=== PATIENT | male | born 1970 | race Caucasian/White ===

== ENCOUNTER 2018-06-18 08:53 | Emergency (ER) | payer SELFPAY, OTHER | END 2018-06-18 11:50 | disposition home or self-care (01) | LOC: ER 08:53 ==

== ENCOUNTER 2020-06-05 12:14 | Inpatient (IN) | payer SELFPAY ==
[~2020-06-05] VITALS: Ht 175 cm; Wt 91.0 kg
[~2020-06-05 12:14] MED LIST: ASP81CT PO; ATEN-147 PO; FENO160T PO; HCTZ12.5T PO; MULT-974 PO; SIMV40TA4 PO; SULF-222 PO
[2020-06-05] MEDS ORDERED: morphine INJ 10 MG/ML 1ML (SYR OR VIAL) IV STA (12:21)
[2020-06-05] MEDS ORDERED: morphine INJ 10 MG/ML 1ML (SYR OR VIAL) ONE (12:21)
--- NOTE | 2020-06-05 12:24 | ED Chest Pain ---
General Stated Complaint: CHEST PAIN, ARM NUMBNESS Source: patient Exam Limitations: no limitations History of Present Illness Date Seen by Provider: Jun 05, 2020 Time Seen by Provider: 12:18 Initial Comments This is a 49 yo male who presents to the ER with c/o intermittent mid chest pain 1 week, but worse today. Apx half hour ago, he had sharp constant chest pain that radiated into his left arm. Rates 9/10 at this time. Denies fevers, cough, shortness of breath, nausea, vomiting, abdominal pain. Denies any alleviating or aggravating factors. Denies history of alcohol, smoking or drug use. Cardiac history includes HTN and HLD, states he only takes hydrochlorothiazide daily. Last meal approximately 2 hours ago. Allergies and Home Medications Allergies Coded Allergies: No Known Drug Allergies (Unverified , 04/15/13) Home Medications Aspirin 81 Mg Chew, 81 MG PO DAILY, (Reported) Atenolol 25 Mg Tab, 25 MG PO DAILY, (Reported) Hydrochlorothiazide 12.5 Mg Cap, 25 MG PO DAILY, (Reported) Multivitamin 1 Each Tablet, 1 EACH PO DAILY, (Reported) Simvastatin 40 Mg Tablet, 40 MG PO HS, (Reported) Patient Home Medication List Home Medication List Reviewed: Yes Review of Systems Review of Systems Constitutional: see HPI EENTM: See HPI Respiratory: See HPI Cardiovascular: See HPI Gastrointestinal: See HPI Genitourinary: See HPI Musculoskeletal: see HPI Skin: see HPI Psychiatric/Neurological: See HPI Endocrine: See HPI Hematologic/Lymphatic: See HPI Past Vqmfqjo-Mrqwqc-Njpczq Hx Patient Social History 2nd Hand Smoke Exposure: No Recent Hopitalizations: No Immunizations Up To Date Tetanus Booster (TDap): More than 5yrs Date of Influenza Vaccine: Mar 31, 2013 Past Medical History Surgeries: Yes Respiratory: No Cardiac: Yes High Cholesterol, Hypertension Neurological: No Reproductive Disorders: No Sexually Transmitted Disease: No Gastrointestinal: No Musculoskeletal: No Endocrine: No Cancer: No Psychosocial: No Integumentary: No Blood Disorders: No Adverse Reaction/Blood Tranf: No Physical Exam Vital Signs Vital Signs - First Documented Capillary Refill : Height, Weight, BMI Height: 5'9.00" Weight: 210lbs. oz. 95.039573hb; 27.02 BMI Method:Stated General Appearance: No Apparent Distress, WD/WN HEENT: PERRL/EOMI, Moist Mucous Membranes Neck: Full Range of Motion, Normal Inspection Respiratory: Lungs Clear, Normal Breath Sounds Cardiovascular: Regular Rate, Rhythm, Normal Peripheral Pulses Neurologic/Psychiatric: Alert, Oriented x3, No Motor/Sensory Deficits Skin: Normal Color, Warm/Dry Progress/Results/Core Measures Results/Orders Lab Results Laboratory Tests Test 06/05/20 12:20 Range/Units White Blood Count 12.9 H 4.3-11.0 10^3/uL Red Blood Count 5.68 H 4.30-5.52 10^6/uL Hemoglobin 17.0 13.3-17.7 g/dL Hematocrit 51 40-54 % Mean Corpuscular Volume 90 80-99 fL Mean Corpuscular Hemoglobin 30 25-34 pg Mean Corpuscular Hemoglobin Concent 33 32-36 g/dL Red Cell Distribution Width 12.9 10.0-14.5 % Platelet Count 333 130-400 10^3/uL Mean Platelet Volume 9.8 9.0-12.2 fL Immature Granulocyte % (Auto) 1 % Neutrophils (%) (Auto) 51 42-75 % Lymphocytes (%) (Auto) 35 12-44 % Monocytes (%) (Auto) 12 0-12 % Eosinophils (%) (Auto) 2 0-10 % Basophils (%) (Auto) 1 0-10 % Neutrophils # (Auto) 6.5 1.8-7.8 10^3/uL Lymphocytes # (Auto) 4.5 H 1.0-4.0 10^3/uL Monocytes # (Auto) 1.5 H 0.0-1.0 10^3/uL Eosinophils # (Auto) 0.2 0.0-0.3 10^3/uL Basophils # (Auto) 0.1 0.0-0.1 10^3/uL Immature Granulocyte # (Auto) 0.1 0.0-0.1 10^3/uL Prothrombin Time 13.1 12.2-14.7 SEC INR Comment 1.0 0.8-1.4 Activated Partial Thromboplast Time 26 24-35 SEC Sodium Level 142 135-145 MMOL/L Potassium Level 3.6 3.6-5.0 MMOL/L Chloride Level 103 98-107 MMOL/L Carbon Dioxide Level 31 21-32 MMOL/L Anion Gap 8 5-14 MMOL/L Blood Urea Nitrogen 19 H 7-18 MG/DL Creatinine 0.95 0.60-1.30 MG/DL Estimat Glomerular Filtration Rate > 60 BUN/Creatinine Ratio 20 Glucose Level 108 H 70-105 MG/DL Calcium Level 9.2 8.5-10.1 MG/DL Corrected Calcium 8.9 8.5-10.1 MG/DL Magnesium Level 2.0 1.6-2.4 MG/DL Total Bilirubin 0.9 0.1-1.0 MG/DL Aspartate Amino Transf (AST/SGOT) 22 5-34 U/L Alanine Aminotransferase (ALT/SGPT) 36 0-55 U/L Alkaline Phosphatase 53 40-136 U/L Myoglobin 33.2 10.0-92.0 NG/ML Troponin I 0.066 H <0.028 NG/ML Total Protein 7.7 6.4-8.2 GM/DL Albumin 4.4 3.2-4.5 GM/DL My Orders Orders - RUPERT EATON [employer] SPECIALIST Cbc With Automated Diff (06/05/20 12:21) Magnesium (06/05/20 12:21) Ekg Tracing (06/05/20 12:21) Comprehensive Metabolic Panel (06/05/20 12:21) Myoglobin Serum (06/05/20 12:21) Protime With Inr (06/05/20 12:21) Partial Thromboplastin Time (06/05/20 12:21) Ed Iv/Invasive Line Start (06/05/20 12:21) Troponin I (06/05/20 12:21) Aspirin Chewable Tablet (Baby Aspirin Ch (06/05/20 12:30) Morphine Injection (Morphine Injection (06/05/20 12:21) Morphine Injection (Morphine Injection (06/05/20 12:21) Clopidogrel Tablet (Plavix Tablet) (06/05/20 12:30) Clopidogrel Tablet (Plavix Tablet) (06/05/20 12:27) Vital Signs/I&O 06/05/20 06/05/20 06/05/20 12:15 12:15 12:29 Temp 36.5 Pulse 56 54 Resp 18 20 B/P (MAP) 143/115 (124) 156/105 Pulse Ox 99 99 O2 Delivery Nasal Cannula Nasal Cannula O2 Flow Rate 2.00 2.0 Progress Progress Note : Progress Note Brought immediately to exam room, placed on monitor and EKG obtained. EKG shows a sinus rhythm with acute inferior TN. Paged Dr. Kohli and notified mushroom laborer. Given ASA 324mg PO and Morphine 2mg IV. Discussed findings with patient and consent for procedure obtained. Dr. Kohli returned call at 1227 and requested patient receive Plavix 300mg PO and to send patient to mushroom laborer. Initial ECG Impression Date: Jun 04, 2020 Initial ECG Impression Time: 12:15 Initial ECG Rate: 55 Initial ECG Rhythm: S.Ventura Initial ECG Impression: Acute TN Departure Communication (Admissions) Time/Spoke to Consulting Phy: 12:[address] Kohli, patient to get ASA and Plavix 300mg PO now and activate mushroom laborer. Impression Primary Impression: Inferior ST segment elevation Disposition: ADMITTED INPATIENT Condition: Stable Admissions Decision to Admit Reason: Admit from ER (General) Decision to Admit/Date: Jun 05, 2020 Time/Decision to Admit Time: 12:15 Departure-Patient Inst. Referrals: IVETTE WEI (PCP/Family) Primary Care Physician RUPERT EATON APRN Jun 05, 2020 12:24
[2020-06-05] MEDS ORDERED: CLOPIDOGREL 300 MG (PLAVIX) TABLET PO ONE ×3 (12:27→13:15)
--- NOTE | 2020-06-05 12:28 | NUR ---
VERBAL CONSENT GIVEN BY PT FOR HEART CATH BY DR OTERO
[2020-06-05 12:29] VITALS: BP 156/105
[2020-06-05] MEDS ORDERED: ASPIRIN 81 MG CHEW (CHILDREN'S ASA) PO ONE (12:30)
[2020-06-05 12:32] LABS: BASOPHILS # (AUTO) 0.1 10^3/uL (0.0-0.1); BASOPHILS % (AUTO) 1 % (0-10); EOSINOPHILS # (AUTO) 0.2 10^3/uL (0.0-0.3); EOSINOPHILS % (AUTO) 2 % (0-10); HEMATOCRIT 51 % (40-54); LYMPHOCYTES # (AUTO) 4.5 10^3/uL (1.0-4.0); LYMPHOCYTES % (AUTO) 35 % (12-44); MEAN CORPUSCULAR HEMOGLOBIN 30 pg (25-34); MEAN CORPUSCULAR HGB CONC 33 g/dL (32-36); MEAN CORPUSCULAR VOLUME 90 fL (80-99); MEAN PLATELET VOLUME 9.8 fL (9.0-12.2); MONOCYTES # (AUTO) 1.5 10^3/uL (0.0-1.0); MONOCYTES % (AUTO) 12 % (0-12); NEUTROPHILS # (AUTO) 6.5 10^3/uL (1.8-7.8); NEUTROPHILS % (AUTO) 51 % (42-75); PLATELET COUNT 333 10^3/uL (130-400); WHITE BLOOD COUNT 12.9 10^3/uL (4.3-11.0)
--- NOTE | 2020-06-05 12:41 | NUR ---
DAUGHTER ADRIANA HERE, NUMBER GAVE TO STATION REPAIR[employer] STAFF AND THEY WILL CONTACT HER AND KEEP HER UPDATED
[2020-06-05 12:42] LABS: ALBUMIN 4.4 GM/DL (3.2-4.5); CHLORIDE 103 MMOL/L (98-107); POTASSIUM 3.6 MMOL/L (3.6-5.0); SODIUM 142 MMOL/L (135-145)
[2020-06-05 12:43] LABS: CALCIUM 9.2 MG/DL (8.5-10.1)
[2020-06-05 12:45] LABS: GLUCOSE 108 MG/DL (70-105); TOTAL PROTEIN 7.7 GM/DL (6.4-8.2)
[2020-06-05] MEDS ORDERED: NITRO DRIP 25000 MCG/D5W 250 ML IV ONE (12:45)
[2020-06-05 12:46] LABS: BILIRUBIN,TOTAL 0.9 MG/DL (0.1-1.0); CARBON DIOXIDE 31 MMOL/L (21-32)
[2020-06-05 12:47] LABS: PROTHROMBIN TIME PATIENT 13.1 SEC (12.2-14.7)
[2020-06-05 12:48] LABS: ALKALINE PHOSPHATASE 53 U/L (40-136); CREATININE SERUM 0.95 MG/DL (0.60-1.30); GFR ESTIMATED > 60
[2020-06-05 12:49] LABS: BUN/CREATININE RATIO 20
[2020-06-05 12:51] LABS: ALANINE AMINOTRANSFERASE 36 U/L (0-55)
[2020-06-05] MEDS ORDERED: HEParin (CATH LAB) 2,000 ML IV ONE (13:15)
[2020-06-05] MEDS ORDERED: NS IV 1000 ML 1,000 ML ONE (13:15)
[2020-06-05] MEDS ORDERED: LIDOCAINE 1% INJ 20 ML 20 ML VIAL ONE (13:15)
[2020-06-05] MEDS ORDERED: EPTIFIBATIDE BOLUS 20 ML IV ONE (13:15)
[2020-06-05] MEDS ORDERED: HEParin 1000 UNIT/ML (10ML VIAL) FOR BOLUS ONE (13:15)
[2020-06-05] MEDS ORDERED: MIDAZOLAM 5 MG/5 ML (VERSED) VIAL ONE (13:16)
[2020-06-05] MEDS ORDERED: fentaNYL INJECTION 100 MCG/2 ML AMP ONE ×2 (13:16→15:01)
[2020-06-05] MEDS ORDERED: ACETAMINOPHEN 325 MG TABLET PO PRN (13:30)
[2020-06-05] MEDS ORDERED: PATIENT MAY USE OWN MEDS, ALL PO SCH (13:30)
--- NOTE | 2020-06-05 13:38 | Cardiology History & Physical ---
HPI-Cardiology Cardiology H&P Date of Admission 06/05/20 Primary Care Physician Moisés Collado Attending Physician Betzaida Kohli [facility]S Consulting Physician [facility] CC: Chest pain HPI: 49 yo man presented to ER with chest pain: mid sternal, severe, pressure- like, present intermittently for several days, severe today, radiating to L arm, associated with diaphoresis and shortness of breath, unrelieved with any meds. Denies palp or syncope. Has gen malaise Review of Systems-Cardiology Review of Systems Constitutional: As described under HPI Eyes: No vision change Ears/Nose/Throat: No ear discharge, No nasal drainage, No recent hearing loss Respiratory: As described under HPI Cardiovascular: As described under HPI Gastrointestinal: As described under HPI Genitourinary: No dysuria, No hematuria, No urine frequency changes Musculoskeletal: No back pain, No joint pain Skin: No rash, No ulcerations Psychiatric/Neurological: No seizure, No focal weakness, No syncope Hematologic: No bleeding abnormalities QRO-Dykufy-Flabxn Hx Patient Social History Alcohol Use: Denies Use Recreational Drug Use: No Smoking Status: Never a Smoker 2nd Hand Smoke Exposure: No Recent Foreign Travel: No Recent Infectious Disease Expo: No Hospitalization with Isolation: Denies Immunizations Up To Date Tetanus Booster (TDap): More than 5yrs Date of Influenza Vaccine: Mar 31, 2013 Past Medical History PMH As described under Assessment. Family Medical History Family Medical History: No fam h/o early CAD or SCD Allergies and Home Medications Allergies Coded Allergies: No Known Drug Allergies (Unverified , 04/15/13) Home Medications Aspirin 81 Mg Chew, 81 MG PO DAILY, (Reported) Atenolol 25 Mg Tab, 25 MG PO DAILY, (Reported) Fenofibrate 160 Mg Tablet, 0.5 EACH PO DAILY, (Reported) Hydrochlorothiazide 12.5 Mg Cap, 25 MG PO DAILY, (Reported) Multivitamin 1 Each Tablet, 1 EACH PO DAILY, (Reported) Simvastatin 40 Mg Tablet, 40 MG PO HS, (Reported) Trimethoprim/Sulfamethoxazole 1 Ea Tablet, 1 EA PO BID Prescribed by: DEDE HERNANDEZ on 09/06/13 2987 Patient Home Medication List Home Medication List Reviewed: Yes Physical Exam-Cardiology Physical Exam Vital Signs/I&O 06/05/20 06/05/20 06/05/20 12:15 12:15 12:29 Temp 36.5 Pulse 56 54 Resp 18 20 B/P (MAP) 143/115 (124) 156/105 Pulse Ox 99 99 O2 Delivery Nasal Cannula Nasal Cannula O2 Flow Rate 2.00 2.0 Capillary Refill : Less Than 3 Seconds Constitutional: AAO x 3, well-developed, well-nourished HEENT: EOMI, hearing is well preserved, ulceration Neck: carotid pulses are 2 + bilaterally, with good upstrokes Respiratory: No accessory muscle use; other (good, bilateral air entry) Cardiovascular: regular rate-rhythm, S1 and S2, systolic murmur (soft ELMA at card base) Gastrointestinal: No tender, No guarding, No rebound; audible bowel sounds Extremities: No clubbing, No cyanosis, No significant edema Neurologic/Psychiatric: oriented x 3, other (moves all limbs equally) Skin: No rash on exposed areas, No ulcerations on exposed areas Data Review Labs Laboratory Tests 06/05/20 12:20: White Blood Count 12.9H, Red Blood Count 5.68H, Hemoglobin 17.0, Hematocrit 51, Mean Corpuscular Volume 90, Mean Corpuscular Hemoglobin 30, Mean Corpuscular Hemoglobin Concent 33, Red Cell Distribution Width 12.9, Platelet Count 333, Mean Platelet Volume 9.8, Immature Granulocyte % (Auto) 1, Neutrophils (%) (Auto) 51, Lymphocytes (%) (Auto) 35, Monocytes (%) (Auto) 12, Eosinophils (%) (Auto) 2, Basophils (%) (Auto) 1, Neutrophils # (Auto) 6.5, Lymphocytes # (Auto) 4.5H, Monocytes # (Auto) 1.5H, Eosinophils # (Auto) 0.2, Basophils # (Auto) 0.1, Immature Granulocyte # (Auto) 0.1, Prothrombin Time 13.1, INR Comment 1.0, Activated Partial Thromboplast Time 26, Sodium Level 142, Potassium Level 3.6, Chloride Level 103, Carbon Dioxide Level 31, Anion Gap 8, Blood Urea Nitrogen 19H, Creatinine 0.95, Estimat Glomerular Filtration Rate > 60, BUN/Creatinine Ratio 20, Glucose Level 108H, Calcium Level 9.2, Corrected Calcium 8.9, Magnesium Level 2.0, Total Bilirubin 0.9, Aspartate Amino Transf (AST/SGOT) 22, Alanine Aminotransferase (ALT/SGPT) 36, Alkaline Phosphatase 53, Myoglobin 33.2, Troponin I 0.066H, Total Protein 7.7, Albumin 4.4 Laboratory Tests 06/05/20 12:20 A/P-Cardiology Assessment/Admission Diagnosis Ac Inf Wall STEMI -Cath 06/05/20: ostial/prox occlusion of a dominant RCA treated with successful stenting with Xience Emily 4.0 x 18 stent; not other significant CAD; LVEDP 18 mmHg; LVEF 50%; posterobasal hypokinesis to akinesis Hypertension Admission Status: Inpatient Order (span 2 midnights) Reason for Inpatient Admission: Ac [place] Discussion and Recomendations * Treat with DAPT and bb and statin * D/c HCTZ * Monitor labs * Discussed findings and treatments with him and his daughter Clinical Quality Measures AMI/AHF: ASA po Prior to arrival: BETZAIDA Martin MD FACP FAC [facility]S Jun 05, 2020 13:38
--- NOTE | 2020-06-05 13:43 | CARDIAC CATHETERIZATION ---
DATE OF SERVICE: 06/05/2020 CARDIAC CATHETERIZATION AND CORONARY INTERVENTION REPORT The patient is a 49-year-old gentleman who presented with acute ST elevation myocardial infarction to the emergency room. Emergency cardiac catheterization was carried out after having obtained an informed consent for cardiac catheterization and possible ad hoc coronary intervention. DESCRIPTION OF PROCEDURE: He was brought to the cardiac catheterization laboratory. Right groin was prepared and draped in the usual sterile fashion. Lidocaine 1% was used for local anesthesia. Modified Seldinger technique was used to advance a 6-Ecuadorean sheath in right femoral artery. We used a 6-Ecuadorean JR4 guide catheter to engage the right coronary artery. This indicated complete ostial occlusion of the right coronary artery and we carried out intervention that is described below. Following completion of the intervention, we used 6-Ecuadorean JL4 catheter to carry out left coronary angiography and 6-Ecuadorean pigtail catheter to carry out left heart catheterization, left ventricular angiography. The patient received 5000 units of intravenous heparin and double bolus of Integrilin during the procedure. He had received aspirin 324 mg and Plavix 300 mg just prior to transfer to the cardiac catheterization laboratory. At the end of the interventional procedure, he received an additional 300 mg of oral Plavix. PERCUTANEOUS INTERVENTION TO THE RIGHT CORONARY: The right coronary was occluded in its ostial/proximal portion. We used a 6-Ecuadorean JR4 guide catheter with side holes to engage the right coronary artery and advanced a ChoICE floppy wire across the lesion and we first performed thrombectomy with a thrombectomy catheter and then carried out balloon angioplasty with a 3.5 x 20 mm balloon. This restored antegrade flow. However, there was still approximately 90% proximal stenosis in the right coronary. This stenosis was stented with Xience Emily 4.0 x 18 mm stent, which was deployed at 16 atmospheres. Subsequent angiography revealed no significant residual stenosis and flow throughout the vessel has improved from MARIA VICTORIA 0 to MARIA VICTORIA 3. HEMODYNAMICS: Left ventricular end-diastolic pressure following coronary angiography and coronary intervention was 28 mmHg. There is no significant pressure gradient on pullback across the aortic valve. Ascending aortic pressure was 135/84 with a mean of 109 mmHg. CORONARY ANGIOGRAPHY: Left main coronary artery, left anterior descending artery, left circumflex artery do not exhibit angiographically significant coronary artery disease. Right coronary artery was occluded in its ostial/proximal portion and successful intervention was carried out to this. Following deployment of Xience Emily 4.0 x 18 mm stent, there is no significant residual stenosis and flow has improved from MARIA VICTORIA 0 to MARIA VICTORIA 3. LEFT VENTRICULAR ANGIOGRAPHY: Left ventricular angiography was carried out in the right anterior oblique projection. Global left ventricular systolic function is well preserved and ejection fraction is approximately 50%. There is posterobasal akinesis. CONCLUSIONS: 1. Coronary artery disease primarily consisting of ostial/proximal occlusion of the right coronary artery to which a successful stenting was carried out with Xience Emily 4.0 x 18 mm stent. 2. Posterobasal hypokinesis to akinesis. 3. Well-preserved global left ventricular systolic function with ejection fraction approximately 50%. 4. Elevated left ventricular end-diastolic pressure. DISCUSSION AND RECOMMENDATIONS: He is being hospitalized. Dual antiplatelet therapy is being continued. Beta blockers will be added as needed and as tolerated. Statin therapy will be initiated. Further recommendation will be based on his hospital course. Job ID: [id number] DocumentID: [id number] Dictated Date: 06/05/2020 13:23:23 Meat Manager Date: 06/05/2020 13:43:11 Dictated By: ROSEANN OTERO MD, MA, FACP, FACC, MTDD
[2020-06-05] MEDS: NS IV 1000 ML 1,000 ML IV SCH ×2 (14:32→18:23)
--- NOTE | 2020-06-05 15:32 | NUR ---
sheath pulled, manual pressure held x20 min. tori utilized to site, covered with op-site. vs monitored, unchanged tolerated well
[2020-06-05] MEDS ORDERED: fentaNYL INJECTION 100 MCG/2 ML AMP IVP ONE (15:45)
[2020-06-06 02:05] LABS: HEMOGLOBIN 14.9 g/dL (13.3-17.7); MEAN PLATELET VOLUME 9.4 fL (9.0-12.2); WHITE BLOOD COUNT 14.3 10^3/uL (4.3-11.0)
[2020-06-06 02:22] LABS: ALBUMIN 3.6 GM/DL (3.2-4.5); CHLORIDE 107 MMOL/L (98-107); POTASSIUM 3.7 MMOL/L (3.6-5.0); SODIUM 142 MMOL/L (135-145)
[2020-06-06 02:23] LABS: CALCIUM 8.5 MG/DL (8.5-10.1)
[2020-06-06 02:24] LABS: GLUCOSE 118 MG/DL (70-105); TOTAL PROTEIN 6.3 GM/DL (6.4-8.2); TRIGLYCERIDES 264 MG/DL (<150); VLDL CHOLESTEROL 53 MG/DL (5-40)
[2020-06-06 02:25] LABS: CARBON DIOXIDE 20 MMOL/L (21-32)
[2020-06-06 02:26] LABS: BILIRUBIN,TOTAL 0.8 MG/DL (0.1-1.0)
[2020-06-06 02:28] LABS: ALKALINE PHOSPHATASE 45 U/L (40-136); CREATININE SERUM 0.81 MG/DL (0.60-1.30); GFR ESTIMATED > 60
[2020-06-06 02:29] LABS: BUN/CREATININE RATIO 23; CHOLESTEROL 152 MG/DL (< 200)
[2020-06-06 02:30] LABS: HDL CHOLESTEROL 34 MG/DL (40-60)
[2020-06-06 02:31] LABS: ALANINE AMINOTRANSFERASE 46 U/L (0-55)
[2020-06-06] MEDS: NS IV 1000 ML 1,000 ML IV SCH ×2 (03:57→23:19)
[2020-06-06] MEDS ORDERED: ASPI-999 PO (09:31)
[2020-06-06] MEDS ORDERED: METO100T6 PO (09:31)
[2020-06-06] MEDS ORDERED: CLOP75TA28 PO (09:31)
--- NOTE | 2020-06-06 09:37 | Progress Note - Cardiology ---
Cardiology SOAP Progress Note Subjective: No cp Gen malaise No shortness of breath or palp No groin or leg discomfort or discoloration No n/v Objective: I&O/Vital Signs 06/05/20 06/05/20 06/05/20 06/05/20 21:45 22:00 22:15 22:30 Pulse 59 60 60 59 Resp 14 14 14 12 B/P (MAP) 150/105 (118) 160/99 (117) 145/96 (118) 152/99 (119) Pulse Ox 94 94 95 O2 Delivery Room Air Room Air Room Air Room Air 06/05/20 06/05/20 06/05/20 06/05/20 22:45 23:00 23:15 23:30 Pulse 59 56 59 59 Resp 13 11 13 15 B/P (MAP) 145/88 (109) 146/91 (106) 144/94 (110) 147/93 (113) Pulse Ox 96 95 96 96 O2 Delivery Room Air Room Air Room Air Room Air 06/06/20 06/06/20 06/06/20 06/06/20 00:00 00:15 00:30 00:45 Pulse 58 60 56 57 Resp 10 12 14 12 B/P (MAP) 149/88 (104) 144/95 (116) 143/93 (112) 136/89 (106) Pulse Ox 95 97 96 95 O2 Delivery Room Air Room Air Room Air Room Air 06/06/20 06/06/20 06/06/20 06/06/20 01:00 01:00 01:15 01:30 Pulse 55 60 57 58 Resp 13 12 11 B/P (MAP) 143/102 (113) 146/99 (115) 150/96 (117) Pulse Ox 97 94 93 O2 Delivery Room Air Room Air Room Air 06/06/20 06/06/20 06/06/20 06/06/20 01:45 02:00 02:15 03:22 Pulse 57 60 61 Resp 13 15 19 B/P (MAP) 150/92 (115) 155/99 (115) 153/102 (122) 140/99 (113) Pulse Ox 96 94 96 97 O2 Delivery Room Air Room Air Room Air Room Air 06/06/20 08:44 Temp 37.2 Pulse 64 Resp 18 B/P (MAP) 147/80 (102) Pulse Ox 94 O2 Delivery Room Air 06/06/20 00:00 Intake Total 90 ml Output Total 950 ml Balance -860 ml Weight (Pounds): 210 Weight (Calculated Kilograms): 95.429093 Constitutional: AAO x 3, well-developed, well-nourished Respiratory: No accessory muscle use; other (good, bilateral air entry) Cardiovascular: regular rate-rhythm, S1 and S2, systolic murmur (soft ELMA at card base) Gastrointestional: No tender, No guarding, No rebound; audible bowel sounds Extremities: No clubbing, No cyanosis, No significant edema Neurologic/Psychiatric: oriented x 3, other (moves all limbs equally) Skin: No rash on exposed areas, No ulcerations on exposed areas Results/Procedures: Labs Laboratory Tests 06/05/20 12:20: White Blood Count 12.9H, Red Blood Count 5.68H, Hemoglobin 17.0, Hematocrit 51, Mean Corpuscular Volume 90, Mean Corpuscular Hemoglobin 30, Mean Corpuscular Hemoglobin Concent 33, Red Cell Distribution Width 12.9, Platelet Count 333, Mean Platelet Volume 9.8, Immature Granulocyte % (Auto) 1, Neutrophils (%) (Auto) 51, Lymphocytes (%) (Auto) 35, Monocytes (%) (Auto) 12, Eosinophils (%) (Auto) 2, Basophils (%) (Auto) 1, Neutrophils # (Auto) 6.5, Lymphocytes # (Auto) 4.5H, Monocytes # (Auto) 1.5H, Eosinophils # (Auto) 0.2, Basophils # (Auto) 0.1, Immature Granulocyte # (Auto) 0.1, Prothrombin Time 13.1, INR Comment 1.0, Activated Partial Thromboplast Time 26, Sodium Level 142, Potassium Level 3.6, Chloride Level 103, Carbon Dioxide Level 31, Anion Gap 8, Blood Urea Nitrogen 19H, Creatinine 0.95, Estimat Glomerular Filtration Rate > 60, BUN/Creatinine Ratio 20, Glucose Level 108H, Calcium Level 9.2, Corrected Calcium 8.9, Magnesium Level 2.0, Total Bilirubin 0.9, Aspartate Amino Transf (AST/SGOT) 22, Alanine Aminotransferase (ALT/SGPT) 36, Alkaline Phosphatase 53, Myoglobin 33.2, Troponin I 0.066H, Total Protein 7.7, Albumin 4.4 06/06/20 01:53: White Blood Count 14.3H, Red Blood Count 5.03, Hemoglobin 14.9, Hematocrit 46, Mean Corpuscular Volume 92, Mean Corpuscular Hemoglobin 30, Mean Corpuscular Hemoglobin Concent 32, Red Cell Distribution Width 13.2, Platelet Count 274, Mean Platelet Volume 9.4, Sodium Level 142, Potassium Level 3.7, Chloride Level 107, Carbon Dioxide Level 20L, Anion Gap 15H, Blood Urea Nitrogen 19H, Creatinine 0.81, Estimat Glomerular Filtration Rate > 60, BUN/Creatinine Ratio 23, Glucose Level 118H, Calcium Level 8.5, Corrected Calcium 8.8, Total Bilirubin 0.8, Aspartate Amino Transf (AST/SGOT) 124H, Alanine Aminotransferase (ALT/SGPT) 46, Alkaline Phosphatase 45, Total Protein 6.3L, Albumin 3.6, Triglycerides Level 264H, Cholesterol Level 152, LDL Cholesterol Direct 82, VLDL Cholesterol 53H, HDL Cholesterol 34L Laboratory Tests 06/05/20 12:20 06/06/20 01:53 A/P: Assessment: Ac Inf Wall STEMI -Cath 06/05/20: ostial/prox occlusion of a dominant RCA treated with successful stenting with Xience Emily 4.0 x 18 stent; not other significant CAD; LVEDP 18 mmHg; LVEF 50%; posterobasal hypokinesis to akinesis Hypertension Plan: * Treat with DAPT and bb and statin * HCTZ d/c'd * Monitor labs * Increase ambulation Clinical Quality Measures AMI/AHF: ASA po Prior to arrival: ROSEANN Martin [facility] Jun 06, 2020 09:37
[2020-06-06] MEDS: CLOPIDOGREL 75 MG (PLAVIX) TABLET PO SCH (09:44)
[2020-06-06] MEDS: ASPIRIN 81 MG CHEW (CHILDREN'S ASA) PO SCH (09:45)
[2020-06-07] MEDS: NS IV 1000 ML 1,000 ML IV SCH (06:18)
[2020-06-07] MEDS: ASPIRIN 81 MG CHEW (CHILDREN'S ASA) PO SCH (08:09)
[2020-06-07] MEDS: CLOPIDOGREL 75 MG (PLAVIX) TABLET PO SCH (08:09)
[2020-06-07] MEDS ORDERED: ASPI-999 PO (10:21)
[2020-06-07] MEDS ORDERED: MTP25TSR PO (10:21)
[2020-06-07] MEDS ORDERED: CLOP75TA28 PO (10:21)
--- NOTE | 2020-06-07 10:24 | Discharge Inst-Cardiology ---
Discharge Inst-Cardiac Discharge Medications New Medications: Aspirin (Aspirin) 81 Mg Tab.chew 81 MG PO DAILY, #90 TAB 3 Refills Clopidogrel Bisulfate (Clopidogrel) 75 Mg Tablet 75 MG PO DAILY, #90 TAB 3 Refills Metoprolol Succinate (Metoprolol Succinate) 25 Mg Tab.er.24h 25 MG PO DAILY, #90 TAB 3 Refills Continued Medications: Multivitamin (Multi Vitamin Daily) 1 Each Tablet 1 EACH PO DAILY, TAB Simvastatin (Simvastatin) 40 Mg Tablet 40 MG PO HS Discontinued Medications: Aspirin (Aspirin 81 Mg Chew Tab) 81 Mg Chew 81 MG PO DAILY Atenolol (Tenormin Tablet) 25 Mg Tab 25 MG PO DAILY, TAB Hydrochlorothiazide (Hctz) 12.5 Mg Cap 25 MG PO DAILY, CAP New, Converted or Re-Newed RX: Transmitted to Pharmacy Patient Instructions Patient Instructions: Please schedule follow up appointment to see Dr. Kohli in 2 weeks JULIET AZEVEDO Jun 07, 2020 10:24
--- NOTE | 2020-06-07 13:33 | Progress Note - Cardiology ---
Cardiology SOAP Progress Note Subjective: No cp or palp or syncope No shortness of breath No n/v No groin or leg discomfort or discoloration Wishes to go home Objective: I&O/Vital Signs 06/07/20 06/07/20 06/07/20 06/07/20 04:00 07:00 07:10 08:13 Temp 38.6 36.2 Pulse 57 76 64 Resp 16 18 B/P (MAP) 132/84 (100) 140/82 (101) Pulse Ox 95 94 O2 Delivery Room Air Room Air Room Air 06/07/20 11:45 B/P (MAP) 06/07/20 00:00 Intake Total 1480 ml Output Total 450 ml Balance 1030 ml Weight (Pounds): 210 Weight (Calculated Kilograms): 95.879054 Constitutional: AAO x 3, well-developed, well-nourished Respiratory: No accessory muscle use; other (good, bilateral air entry) Cardiovascular: regular rate-rhythm, S1 and S2, systolic murmur (soft ELMA at card base) Gastrointestional: No tender, No guarding, No rebound; audible bowel sounds Extremities: No clubbing, No cyanosis, No significant edema Neurologic/Psychiatric: oriented x 3, other (moves all limbs equally) Skin: No rash on exposed areas, No ulcerations on exposed areas Results/Procedures: Labs Laboratory Tests 06/06/20 01:53 A/P: Assessment: [facility] Wall STEMI -Cath 06/05/20: ostial/prox occlusion of a dominant RCA treated with successful stenting with Xience Emily 4.0 x 18 stent; not other significant CAD; LVEDP 18 mmHg; LVEF 50%; posterobasal hypokinesis to akinesis Hypertension Plan: * Treat with DAPT and bb and statin * HCTZ d/c'd * Monitor labs * We again reviewed and discussed the cath findings and the interventions u ndertaken. We discussed the rationale and potential side effects of current regimen. He has tolerated all meds well. We have advised continuation of and compliance with the current medical regimen, especially his DAPT. He understands and states he will comply. Clinical Quality Measures AMI/AHF: ASA po Prior to arrival: ROSEANN Martin MD [facility] Jun 07, 2020 13:33
--- NOTE | 2020-06-07 13:37 | Cardiology Discharge Summary ---
Diagnosis/Chief Complaint Date of Admission Jun 05, 2020 at 13:28 Date of Discharge Jun 07, 2020 at 11:46 Admission Diagnosis Final/Discharge Diagnosis Ac Inf Wall STEMI - Cath 06/05/20: ostial/prox occlusion of a dominant RCA treated with successful stenting with Xience Emily 4.0 x 18 stent; not other significant CAD; LVEDP 18 mmHg; LVEF 50%; posterobasal hypokinesis to akinesis Hypertension Chief Complaint/HPI Chief Complaint/HPI CC: Chest pain HPI: 49 yo man presented to ER with chest pain: mid sternal, severe, pressure- like, present intermittently for several days, severe today, radiating to L arm, associated with diaphoresis and shortness of breath, unrelieved with any meds. Denies palp or syncope. Has gen malaise For hospital course and condition at discharge, please refer to the progress note of today's date. Discharge Summary Discussion & Recommendations Home Medications Reviewed patient Home Medication Reconciliation performed by pharmacy medication reconciliations cable installation technician and/or nursing. Patients Allergies have been reviewed. Discharge Home Medications: Reviewed and agree with Discharge Medication list on patient's Discharge Instruction sheet Clinical Quality Measures AMI/AHF: ASA po Prior to arrival: ROSEANN Martin MD FACP FAC CCDS Jun 07, 2020 13:37
== END 2020-06-07 11:46 | disposition home or self-care (01) | DRG 247 ==
LOC: EDUNIT# 12:14 → ER 12:17 → CATH 12:31 → ICU 13:28 → CATH 13:31 → ICU 13:31 → CSD 06-06 03:12
PROVIDERS: ADMIT Internal Medicine Cardiovascular Disease; ATTEND Internal Medicine Cardiovascular Disease
PROC: 027034Z Dilation of Coronary Artery, One Artery with Drug-eluting Intraluminal Device, Percutaneous Approach (ICD-10-PCS; principal; 2020-06-05)
PROC: 4A023N7 Measurement of Cardiac Sampling and Pressure, Left Heart, Percutaneous Approach (ICD-10-PCS; 2020-06-05)
PROC: B2111ZZ Fluoroscopy of Multiple Coronary Arteries using Low Osmolar Contrast (ICD-10-PCS; 2020-06-05)
PROC: B2151ZZ Fluoroscopy of Left Heart using Low Osmolar Contrast (ICD-10-PCS; 2020-06-05)
DX: I21.19 ST elevation (STEMI) myocardial infarction involving other coronary artery of inferior wall (principal); E78.00 Pure hypercholesterolemia, unspecified; I10 Essential (primary) hypertension; Z79.82 Long term (current) use of aspirin
CPT/HCPCS: 36415; 80053; 80061; 83735; 83874; 84484; 85025; 85027; 85347; 85610; 85730; 93005; 93458

== ENCOUNTER → 2021-03-19 | Outpatient (CLI) | payer OTHER ==
[~2021-03-19] MED LIST changes: +ASPI-999 PO; +CLOP75TA28 PO; +METO100T6 PO; +MTP25TSR PO
== END ==
LOC: CARD 14:30
PROVIDERS: ATTEND Internal Medicine Cardiovascular Disease
DX: I25.10 Atherosclerotic heart disease of native coronary artery without angina pectoris (principal); I51.7 Cardiomegaly
CPT/HCPCS: 93306

== ENCOUNTER 2021-04-18 16:15 | Observation (INO) | payer OTHER ==
[~2021-04-18] VITALS: Ht 175.3 cm; Wt 90.7 kg
[2021-04-18] VITALS (9 sets, daily range): BP systolic 158–188; BP diastolic 92–116
[2021-04-18] MEDS ORDERED: NITROGLYCERIN 0.4 MG SL TABS BTL 25'S SL ONE (16:27)
[2021-04-18] MEDS ORDERED: ASPIRIN 81 MG CHEW (CHILDREN'S ASA) ONE (16:27)
[2021-04-18] MEDS ORDERED: ASPIRIN 81 MG CHEW (CHILDREN'S ASA) PO ONE (16:30)
[2021-04-18] MEDS ORDERED: NITROGLYCERIN 0.4 MG SL TABS BTL 25'S SL PRN ×2 (16:30→18:15)
--- NOTE | 2021-04-18 16:32 | ED Chest Pain ---
General Stated Complaint: CP/L ARM PAIN X 2 DAYS/HX HEART ATTACK Source: patient Exam Limitations: no limitations History of Present Illness Date Seen by Provider: Apr 18, 2021 Time Seen by Provider: 16:18 Initial Comments Patient presents to the ER by private conveyance from work with chief complaint that for the past day and a half he has been having low to moderate intermittent left-sided chest pain. It started getting into his left arm and making him think about the chest pain he had before his heart attack in May 2020. He is followed by Dr. Kohli and has had difficulty for the past 3 to 4 months with maintaining a decent blood pressure. He states his been taking his aspirin Plavix and other medications as prescribed. He is on metoprolol 100 mg. He is not had significant swelling in his hands or feet. He does not feel short of breath. 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 No cough shortness of breath fevers chills nausea vomiting presently. He says the pain is about a 2 out of 10 presently and 5 out of 10 at its worse. Patient has a history of hypertension, hyperlipidemia, primary family coronary artery disease at early age. He denies diabetes or smoking. Cardiac catheterization by Dr. Kohli 06/05/2020 showing ostial proximal occlusion of the dominant RCA status post single stent placement. No other significant coronary arterial disease. EF of 50%. Posterior basal hypokinesis to akinesis. Allergies and Home Medications Allergies Coded Allergies: No Known Drug Allergies (Unverified , 04/15/13) Patient Home Medication List Home Medication List Reviewed: Yes Aspirin (Aspirin) 81 Mg Tab.chew, 81 MG PO DAILY Prescribed by: JULIET AZEVEDO on 06/07/20 1021 Clopidogrel Bisulfate (Clopidogrel) 75 Mg Tablet, 75 MG PO DAILY Prescribed by: JULIET AZEVEDO on 06/07/20 1021 Metoprolol Succinate (Metoprolol Succinate) 25 Mg Tab.er.24h, 25 MG PO DAILY Prescribed by: JULIET AZEVEDO on 06/07/20 1021 Multivitamin (Multi Vitamin Daily) 1 Each Tablet, 1 EACH PO DAILY, (Reported) Entered as Reported by: DANIELE FLANAGAN on 04/15/13 1635 Simvastatin (Simvastatin) 40 Mg Tablet, 40 MG PO HS, (Reported) Entered as Reported by: DANIELE FLANAGAN on 04/15/13 4582 Review of Systems Review of Systems Constitutional: No chills, No diaphoresis EENTM: No Blurred Vision, No Double Vision Respiratory: Denies Cough, Denies Shortness of Air Cardiovascular: See HPI, Chest Pain; Denies Edema, Denies Syncope Gastrointestinal: Denies Abdominal Pain, Denies Constipated, Denies Diarrhea, Denies Nausea Genitourinary: Denies Burning, Denies Discharge Musculoskeletal: No back pain, No joint pain Skin: No pruritus, No rash Psychiatric/Neurological: Denies Headache, Denies Numbness Endocrine: Denies Flushing, Denies Increased Urine Hematologic/Lymphatic: Denies Anemia, Denies Easy Bleeding, Denies Easy Bruising All Other Systems Reviewed Negative Unless Noted: Yes Past Aaysdsu-Kwnvhw-Xvkplg Hx Patient Social History Tobacco Use?: No Use of E-Cig and/or Vaping dev: No Substance use?: No Alcohol Use?: No Immunizations Up To Date Tetanus Booster (TDap): More than 5yrs Past Medical History Surgeries: Yes Respiratory: No Cardiac: Yes High Cholesterol, Hypertension Neurological: No Reproductive Disorders: No Sexually Transmitted Disease: No Gastrointestinal: No Musculoskeletal: No Endocrine: No Cancer: No Psychosocial: No Integumentary: No Blood Disorders: No Adverse Reaction/Blood Tranf: No Physical Exam Vital Signs Vital Signs - First Documented 04/18/21 16:19 Temp 36.3 Pulse 54 Resp 17 B/P (MAP) 188/116 (140) Pulse Ox 96 O2 Delivery Room Air Capillary Refill : Height, Weight, BMI Height: 5'9.00" Weight: 210lbs. oz. 95.740132qe; 29.00 BMI Method:Stated General Appearance: WD/WN, Anxious, Mild Distress HEENT: PERRL/EOMI, Pharynx Normal, Moist Mucous Membranes Neck: Full Range of Motion, Normal Inspection Respiratory: Chest Non Tender, Lungs Clear, Normal Breath Sounds, No Accessory Muscle Use, No Respiratory Distress Cardiovascular: Regular Rate, Rhythm, Normal Peripheral Pulses, Other (Trace bipedal edema) Gastrointestinal: Non Tender, Soft Extremity: Normal Capillary Refill, Non Tender, No Calf Tenderness, Pedal Edema (Trace bilateral, symmetric without tenderness to palpation, erythema or i nduration) Neurologic/Psychiatric: Alert, Oriented x3, No Motor/Sensory Deficits Skin: Normal Color, Warm/Dry Progress/Results/Core Measures Results/Orders Lab Results Laboratory Tests Test 04/18/21 16:27 Range/Units White Blood Count 10.1 4.3-11.0 10^3/uL Red Blood Count 5.39 4.30-5.52 10^6/uL Hemoglobin 16.0 13.3-17.7 g/dL Hematocrit 49 40-54 % Mean Corpuscular Volume 91 80-99 fL Mean Corpuscular Hemoglobin 30 25-34 pg Mean Corpuscular Hemoglobin Concent 33 32-36 g/dL Red Cell Distribution Width 12.8 10.0-14.5 % Platelet Count 318 130-400 10^3/uL Mean Platelet Volume 9.5 9.0-12.2 fL Immature Granulocyte % (Auto) 2 % Neutrophils (%) (Auto) 56 42-75 % Lymphocytes (%) (Auto) 26 12-44 % Monocytes (%) (Auto) 13 H 0-12 % Eosinophils (%) (Auto) 2 0-10 % Basophils (%) (Auto) 1 0-10 % Neutrophils # (Auto) 5.7 1.8-7.8 10^3/uL Lymphocytes # (Auto) 2.6 1.0-4.0 10^3/uL Monocytes # (Auto) 1.3 H 0.0-1.0 10^3/uL Eosinophils # (Auto) 0.2 0.0-0.3 10^3/uL Basophils # (Auto) 0.1 0.0-0.1 10^3/uL Immature Granulocyte # (Auto) 0.2 H 0.0-0.1 10^3/uL Prothrombin Time 12.9 12.2-14.7 SEC INR Comment 0.9 0.8-1.4 Activated Partial Thromboplast Time 29 24-35 SEC Sodium Level 141 135-145 MMOL/L Potassium Level 3.9 3.6-5.0 MMOL/L Chloride Level 104 98-107 MMOL/L Carbon Dioxide Level 23 21-32 MMOL/L Anion Gap 14 5-14 MMOL/L Blood Urea Nitrogen 18 7-18 MG/DL Creatinine 0.91 0.60-1.30 MG/DL Estimat Glomerular Filtration Rate 88 BUN/Creatinine Ratio 20 Glucose Level 96 70-105 MG/DL Calcium Level 9.0 8.5-10.1 MG/DL Corrected Calcium 8.8 8.5-10.1 MG/DL Magnesium Level 1.9 1.6-2.4 MG/DL Total Bilirubin 0.8 0.1-1.0 MG/DL Aspartate Amino Transf (AST/SGOT) 22 5-34 U/L Alanine Aminotransferase (ALT/SGPT) 29 0-55 U/L Alkaline Phosphatase 66 40-136 U/L Myoglobin 43.8 10.0-92.0 NG/ML Troponin I < 0.028 <0.028 NG/ML B-Type Natriuretic Peptide 49.8 <100.0 PG/ML Total Protein 7.4 6.4-8.2 GM/DL Albumin 4.3 3.2-4.5 GM/DL Lipase 35 8-78 U/L My Orders Orders - ROS LANDON Cbc With Automated Diff (04/18/21 16:) Magnesium (04/18/21:) Chest 1 View, Ap/Pa Only (04/18/21:) Ekg Tracing (04/18/21:) Comprehensive Metabolic Panel (04/18/21) Myoglobin Serum (04/18/21:) Protime With Inr (04/18/21:) Partial Thromboplastin Time (04/18/21) O2 (04/18/21:) Monitor-Rhythm Ecg Trace Only (04/18/21:) Lipid Panel (04/19/21 06:00) Ed Iv/Invasive Line Start (04/18/21:) Lipase (04/18/21:) BNP (04/18/21:) Nitroglycerin 0.4 Mg Btl 25's (Nitrostat (04/18/21 16:30) Aspirin Chewable Tablet (Baby Aspirin Ch (04/18/21 16:30) Aspirin Chewable Tablet (Baby Aspirin Ch (04/18/21 16:27) Nitroglycerin 0.4 Mg Btl 25's (Nitrostat (04/18/21 16:27) Troponin I (04/18/21 16:) Medications Given in ED Current Medications Medications Dose Ordered Sig/Thor Route Start Time Stop Time Status Last Admin Dose Admin Aspirin 324 mg ONCE ONCE PO 04/18/21 16:30 04/18/21 16:31 DC 04/18/21 16:29 324 MG Nitroglycerin 0.4 mg UD PRN SL 04/18/21 16:30 04/18/21 16:29 0.4 MG Vital Signs/I&O 04/18/21 16:19 Temp 36.3 Pulse 54 Resp 17 B/P (MAP) 188/116 (140) Pulse Ox 96 O2 Delivery Room Air Progress Progress Note #1: Time: 16:29 Progress Note Concern for unstable angina. We will give him 324 mg of aspirin and a trial of nitroglycerin. His blood pressure is 188/110. EKG unrevealing of any acute NC. Will check labs and consult with cardiology. Progress Note #2: Time: 17:06 Progress Note 4 points; HEART Pathway Score. High risk: 12-65% 30-day MACE Admit to hospital or observation. Further testing indicated. Initial ECG Impression Date: Apr 18, 2021 Initial ECG Impression Time: 16:22 Initial ECG Rate: 53 Initial ECG Rhythm: Normal Sinus Initial ECG Intervals: Normal Initial ECG Impression: Normal, Nonspecific Changes Initial ECG Comparisson: Unchanged Comment Normal sinus rhythm without clinically relevant ST changes. Evidence of old inferior infarct. Diagnostic Imaging Diagonstic Imaging: Xray Plain Films/CT/US/NM/MRI: chest Comments [facility]. [place], [place] NAME: ADRIANA PENALOZA [facility] REC#: [id number] PT STATUS: REG ER : 1970 PHYSICIAN: ROS LANDON MD ADMIT DATE: 04/18/21/ER Signed Date of Exam:04/18/21 CHEST 1 VIEW, AP/PA ONLY CHEST 1 VIEW, AP/PA ONLY Indication: Chest pain. Comparison: 06/18/2018 Findings: No focal airspace disease in the visualized lungs. Please note that the posterior lower lobes are poorly evaluated by portable radiography. No pleural effusion or pneumothorax. Normal cardiomediastinal silhouette. Impression: 1. No acute cardiopulmonary process by portable radiography. Dictated by: Dictated on workstation # [id number] Dict: 04/18/217 Trans: 04/18/211706 [facility] [id number] Interpreted by: GLO ANTHONY MD Electronically signed by: GLO ANTHONY MD 04/18/21 0037 Reviewed: Reviewed by Me Departure Communication (Admissions) Time/Spoke to Admitting Phy: 17:[address] Dean and she agrees to observe the patient with cardiac consultation. Time/Spoke to Consulting Phy: 17:[address] Dodge he agrees with the nature of risks that the patient should come in overnight for observation and agrees to do consultation for cardiology Impression Primary Impression: Unstable angina Disposition: ADMITTED INPATIENT Condition: Stable Admissions Decision to Admit Reason: Admit from ER (General) Decision to Admit/Date: Apr 18, 2021 Time/Decision to Admit Time: 17:01 Departure-Patient Inst. Referrals: [facility]/ (PCP) Primary Care Physician IVETTE WEI (Family) Primary Care Physician ROS LANDON Apr 18, 2021 16:32
[2021-04-18 16:38] LABS: BASOPHILS # (AUTO) 0.1 10^3/uL (0.0-0.1); BASOPHILS % (AUTO) 1 % (0-10); EOSINOPHILS # (AUTO) 0.2 10^3/uL (0.0-0.3); EOSINOPHILS % (AUTO) 2 % (0-10); HEMATOCRIT 49 % (40-54); LYMPHOCYTES # (AUTO) 2.6 10^3/uL (1.0-4.0); LYMPHOCYTES % (AUTO) 26 % (12-44); MEAN CORPUSCULAR HEMOGLOBIN 30 pg (25-34); MEAN CORPUSCULAR HGB CONC 33 g/dL (32-36); MEAN CORPUSCULAR VOLUME 91 fL (80-99); MEAN PLATELET VOLUME 9.5 fL (9.0-12.2); MONOCYTES # (AUTO) 1.3 10^3/uL (0.0-1.0); MONOCYTES % (AUTO) 13 % (0-12); NEUTROPHILS # (AUTO) 5.7 10^3/uL (1.8-7.8); NEUTROPHILS % (AUTO) 56 % (42-75); PLATELET COUNT 318 10^3/uL (130-400); WHITE BLOOD COUNT 10.1 10^3/uL (4.3-11.0)
[2021-04-18 16:46] LABS: ALBUMIN 4.3 GM/DL (3.2-4.5); CHLORIDE 104 MMOL/L (98-107); POTASSIUM 3.9 MMOL/L (3.6-5.0); SODIUM 141 MMOL/L (135-145)
[2021-04-18 16:48] LABS: GLUCOSE 96 MG/DL (70-105)
[2021-04-18 16:49] LABS: TOTAL PROTEIN 7.4 GM/DL (6.4-8.2)
[2021-04-18 16:50] LABS: BILIRUBIN,TOTAL 0.8 MG/DL (0.1-1.0); CARBON DIOXIDE 23 MMOL/L (21-32); INR 0.9 (0.8-1.4); PROTHROMBIN TIME PATIENT 12.9 SEC (12.2-14.7)
[2021-04-18 16:52] LABS: ALKALINE PHOSPHATASE 66 U/L (40-136); CREATININE SERUM 0.91 MG/DL (0.60-1.30); GFR ESTIMATED 88
[2021-04-18 16:53] LABS: BUN/CREATININE RATIO 20
[2021-04-18 16:55] LABS: ALANINE AMINOTRANSFERASE 29 U/L (0-55); MAGNESIUM 1.9 MG/DL (1.6-2.4)
[2021-04-18 16:56] LABS: LIPASE 35 U/L (8-78)
--- NOTE | 2021-04-18 17:09 | Diagnostic Imaging Report ---
CHEST 1 VIEW, AP/PA ONLY Indication: Chest pain. Comparison: 06/18/2018 Findings: No focal airspace disease in the visualized lungs. Please note that the posterior lower lobes are poorly evaluated by portable radiography. No pleural effusion or pneumothorax. Normal cardiomediastinal silhouette. Impression: 1. No acute cardiopulmonary process by portable radiography. Dictated by: Dictated on workstation # [id number]
[2021-04-18] MEDS ORDERED: ENOXAPARIN 40 MG/0.4 ML (LOVENOX) SYR SC SCH (18:15)
[2021-04-18] MEDS ORDERED: diphenhydrAMINE 25 MG TAB (BENADRYL) PO PRN (18:15)
[2021-04-18] MEDS ORDERED: LOPERAMIDE 2 MG (IMODIUM) TABLET PO PRN (18:15)
[2021-04-18] MEDS ORDERED: ONDANSETRON 4 MG/2 ML (SDV) Z0FRAN IVP PRN (18:15)
[2021-04-18] MEDS ORDERED: ALPRAZolam 0.25 MG (XANAX) TAB PO PRN (18:15)
[2021-04-18] MEDS ORDERED: ACETAMINOPHEN 500 MG TAB (TYLENOL) PO PRN (18:15)
[2021-04-18] MEDS ORDERED: MELATONIN 3 MG TABLET PO PRN (18:15)
[2021-04-18] MEDS ORDERED: ONDANSETRON 4 MG (ZOFRAN) ORAL DISSOLVE TAB PO PRN (18:15)
[2021-04-18] MEDS ORDERED: morphine INJ 10 MG/ML 1ML (SYR OR VIAL) IVP PRN (18:15)
[2021-04-18] MEDS ORDERED: DOCUSATE SODIUM 100 MG (COLACE) CAP PO PRN (18:15)
[2021-04-18] MEDS ORDERED: HYDROcodone/APAP 5 MG/325 MG (LORTAB) TAB PO PRN (18:15)
[2021-04-18] MEDS ORDERED: CALCIUM CARBONATE 500 MG (TUMS) TAB.CHEW PO PRN (18:15)
[2021-04-18] MEDS ORDERED: morphine INJ 4 MG/ML 1 ML (VIAL/SYRINGE) IV PRN (18:30)
[2021-04-18] MEDS ORDERED: ACETAMINOPHEN 325 MG TABLET PO PRN (18:30)
[2021-04-18] MEDS: polyethylene glycoL POWDER 17 GM (MIRALAX) PACK PO SCH (20:08)
[2021-04-18] MEDS: SENNA W/DOCUSATE (SENOKOT S) TABLET PO SCH (20:08)
[2021-04-18] MEDS: meTOprolol TARTRATE 25 MG (LOPRESSOR) TABLET PO SCH (20:08)
[2021-04-19 00:05] VITALS: BP 159/96
[2021-04-19 03:42] VITALS: BP 140/89
[2021-04-19 05:15] LABS: BASOPHILS % (AUTO) 0 % (0-10); EOSINOPHILS # (AUTO) 0.2 10^3/uL (0.0-0.3); EOSINOPHILS % (AUTO) 2 % (0-10); HEMATOCRIT 47 % (40-54); HEMOGLOBIN 15.2 g/dL (13.3-17.7); LYMPHOCYTES # (AUTO) 1.9 10^3/uL (1.0-4.0); LYMPHOCYTES % (AUTO) 21 % (12-44); MEAN CORPUSCULAR HEMOGLOBIN 30 pg (25-34); MEAN CORPUSCULAR HGB CONC 32 g/dL (32-36); MEAN CORPUSCULAR VOLUME 91 fL (80-99); MEAN PLATELET VOLUME 9.9 fL (9.0-12.2); MONOCYTES % (AUTO) 10 % (0-12); NEUTROPHILS % (AUTO) 66 % (42-75); PLATELET COUNT 272 10^3/uL (130-400); WHITE BLOOD COUNT 9.2 10^3/uL (4.3-11.0)
[2021-04-19 05:26] LABS: ALBUMIN 3.7 GM/DL (3.2-4.5); POTASSIUM 4.2 MMOL/L (3.6-5.0)
[2021-04-19 05:27] LABS: CALCIUM 8.7 MG/DL (8.5-10.1)
[2021-04-19 05:29] LABS: TOTAL PROTEIN 6.4 GM/DL (6.4-8.2)
[2021-04-19 05:32] LABS: CREATININE SERUM 0.81 MG/DL (0.60-1.30)
[2021-04-19 08:00] VITALS: BP 162/94
[2021-04-19] MEDS ORDERED: ASPIRIN E.C. 81 MG (ECOTRIN) TAB PO SCH (09:00)
[2021-04-19] MEDS: meTOprolol TARTRATE 25 MG (LOPRESSOR) TABLET PO SCH (09:00)
[2021-04-19] MEDS: SENNA W/DOCUSATE (SENOKOT S) TABLET PO SCH ×2 (09:38→09:47)
[2021-04-19] MEDS: polyethylene glycoL POWDER 17 GM (MIRALAX) PACK PO SCH ×2 (09:38→09:47)
[2021-04-19 11:00] VITALS: BP 140/93
--- NOTE | 2021-04-19 11:01 | Short Stay Summary-Hospitalist ---
History of Present Illness HPI/Chief Complaint Chief complaint: Chest pain History of present illness: This is a 50-year-old white male who presented with chest pain. He had a stent placed by Dr. Kohli in May. He has been compliant with medications. No chest pain currently. Restarted all home meds. Cardiology evaluated him and found no evidence of ACS so he will go home and return if anything worsens. Source: patient Exam Limitations: no limitations Date Seen 04/19/21 Time Seen by a Provider: 11:00 Attending Physician Debra Dean DO [facility] Center/[facility] [place],[facility] Referring Physician Date of Admission Apr 18, 2021 at 17:56 Home Medications & Allergies Home Medications Reviewed patient Home Medication Reconciliation performed by pharmacy medication reconciliations tree and shrub technician and/or nursing. Patients Allergies have been reviewed. Allergies Allergies Coded Allergies No Known Drug Allergies (Ypcaogqyhg32/16/13) Past Xpxdveq-Qfiwsb-Ezboga Hx Patient Social History Marrital Status: single Employed/Student: unemployed Tobacco Use?: No Smoking Status: Never a Smoker Use of E-Cig and/or Vaping dev: No Substance use?: No Alcohol Use?: Yes Alcohol Frequency: Rarely Pt feels they are or have been: No Immunizations Up To Date Date of Influenza Vaccine: Mar 24, 2021 First/Initial COVID19 Vaccinat: JULY 2020 Second COVID19 Vaccination Moses: JULY 2020 Current Status Advance Directives: No Communicates: Verbally Primary Language: Togolese Preferred Spoken Language: Togolese Implanted or Applied Medical D: Stents Past Medical History Surgeries: Coronary Stent Coronary Artery Disease, High Cholesterol, Hypertension Sexually Transmitted Disease: No Blood Disorders: No Adverse Reaction/Blood Tranf: No Review of Systems Constitutional: see HPI Cardiovascular: chest pain Physical Exam Physical Exam Vital Signs Vital Signs - First Documented 04/18/21 04/18/21 16:19 23:35 Temp 36.3 Pulse 54 Resp 17 B/P (MAP) 188/116 (140) Pulse Ox 96 O2 Delivery Room Air FiO2 21 Capillary Refill : Less Than 3 Seconds Height, Weight, BMI Height: 5'9.00" Weight: 210lbs. oz. 95.922781ab; 29.51 BMI Method:Stated General Appearance: WD/WN, Anxious, Mild Distress HEENT: PERRL/EOMI, Pharynx Normal, Moist Mucous Membranes Neck: Full Range of Motion, Normal Inspection Respiratory: Chest Non Tender, Lungs Clear, Normal Breath Sounds, No Accessory Muscle Use, No Respiratory Distress Cardiovascular: Regular Rate, Rhythm, Normal Peripheral Pulses, Other (Trace bipedal edema) Gastrointestinal: Non Tender, Soft Extremity: Normal Capillary Refill, Non Tender, No Calf Tenderness, Pedal Edema (Trace bilateral, symmetric without tenderness to palpation, erythema or induration) Neurologic/Psychiatric: Alert, Oriented x3, No Motor/Sensory Deficits Skin: Normal Color, Warm/Dry Results Results/Procedures Labs Laboratory Tests 04/18/21 16:27 04/19/21 04:47 Patient resulted labs reviewed. Short Stay Diagnosis Discharge Diagnosis-Short Stay Admission Diagnosis Chest pain Final Discharge Diagnosis Chest pain without evidence of ACS Hypertension Hyperlipidemia CAD previous stent May Conclusion Plan Discharge home Diagnosis/Problems Diagnosis/Problems (1) Chest pain Clinical Quality Measures AMI/AHF: ASA po Prior to arrival: Yes DEBRA DEAN DO Apr 19, 2021 11:01
--- NOTE | 2021-04-19 13:52 | Consultation-Cardiology ---
HPI-Cardiology Cardiology Consultation: Date of Consultation 04/19/2021 Date of Admission 04/18/2021 Attending Physician Debra Dean DO Admitting Physician [facility] Consulting Physician DIA ORTIZ JR, MD HPI: Time Seen by a Provider: 13:55 Chief Complaint: Reason for consultation: Chest pain. I had the pleasure of seeing Marlys on the medical/surgical unit at [facility] in [place], [place] today. He has a history of coronary artery disease with a non-ST elevation myocardial infarction in May 2020 treated with 1 drug-eluting stent to the ostium and proximal right coronary artery. He was doing well until yesterday when he started having brief episodes of chest discomfort. He describes this as a sharp pain in the left side of his chest that radiated towards his left axilla and left upper arm. This would make him feel like he needed to take a deep breath. Chest discomfort would only last for a few seconds then resolved. Nothing seemed to bring this on. 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 This waxed and waned th roughout the day but he continued to work. At the end of the day when he finished work, he decided to come over to the emergency room to have this checked out. He states that when he had his myocardial infarction earlier in the year, he felt like his chest was going to explode. This does not feel anything like what he was experiencing yesterday. Overnight, he has not had any signif icant recurrent chest discomfort. He denies dyspnea on exertion, paroxysmal nocturnal dyspnea, orthopnea, palpitations, lightheadedness, syncope, or lower extremity edema. He reports that he has been compliant with all of his medications. He did just see Dr. Kohli in the office and had his beta-vickie increased due to hypertension. Because of the chest discomfort, a cardiology co nsultation was requested. Certain portions of this document may have been dictated utilizing voice recognition technology. Inherent to this technology, typographical and grammatical errors may exist. As much as I am diligent to identify and correct these mistakes, some errors may remain in the document. Review of Systems-Cardiology Review of Systems Other comments Review of 10 organ systems is as per the history of present illness, otherwise negative. All Other Systems Reviewed Negative Unless Noted: Yes JDH-Hcukfr-Gpxomo Hx Patient Social History Smoking Status: Former Smoker 2nd Hand Smoke Exposure: No Have you traveled recently?: No Alcohol Use?: Yes Pt feels they are or have been: No Immunizations Up To Date Tetanus Booster (TDap): More than 5yrs Date of Influenza Vaccine: Mar 24, 2021 Past Medical History PMH As described under Assessment. Family Medical History Family Medical History: No fam h/o early CAD or SCD Allergies and Home Medications Allergies Coded Allergies: No Known Drug Allergies (Unverified , 04/15/13) Patient Home Medication List Home Medication List Reviewed: Yes Aspirin (Aspirin) 81 Mg Tab.chew, 81 MG PO DAILY Prescribed by: JULIET AZEVEDO on 06/07/20 1021 Clopidogrel Bisulfate (Clopidogrel) 75 Mg Tablet, 75 MG PO DAILY Prescribed by: JULIET AZEVEDO on 06/07/20 1021 Metoprolol Succinate (Metoprolol Succinate) 25 Mg Tab.er.24h, 25 MG PO DAILY Prescribed by: JULIET AZEVEDO on 06/07/20 1021 Multivitamin (Multi Vitamin Daily) 1 Each Tablet, 1 EACH PO DAILY, (Reported) Entered as Reported by: DANIELE FLANAGAN on 04/15/13 1635 Simvastatin (Simvastatin) 40 Mg Tablet, 40 MG PO HS, (Reported) Entered as Reported by: DANIELE FLANAGAN on 04/15/13 1635 Exam Vital Signs Vital Signs Date Time Temp Pulse Resp B/P (MAP) Pulse Ox O2 Delivery O2 Flow Rate FiO2 04/19/21 13:00 54 04/19/21 11:00 36.5 20 140/93 (109) 93 Room Air 04/18/21 23:35 21 Physical Exam General: Alert. No acute distress. Well nourished and appears stated age. Eye: Extraocular movements are intact. Conjunctivae are clear. There are no xanthelasma. HENT: Normocephalic. Atraumatic. Carotid pulsations 2/2 without bruits. Neck: Jugular venous pressure does not appear elevated. No thyromegaly appreciated. Respiratory: Lungs are clear to auscultation. Respirations are non-labored. Breath sounds are equal. Symmetrical chest wall expansion. Cardiovascular: Normal rate. Regular rhythm. No murmur. No gallop. Point of maximal impulse is not appear displaced. Good pulses equal in all extremities. No edema. Gastrointestinal: Soft. Normal bowel sounds. Skin: Skin turgor is normal. There is no pallor. Musculoskeletal: No kyphosis or scoliosis appreciated. Neurologic: Alert and oriented to person, place, time. Cranial nerves 3-12 appear grossly intact. The patient has good motor tone strength in the upper and lower extremities bilaterally. Psychiatric: Cooperative. Appropriate mood & affect. Labs Laboratory Tests Test 04/18/21 16:27 04/18/21 22:35 04/19/21 04:47 Range/Units White Blood Count 10.1 9.2 4.3-11.0 10^3/uL Red Blood Count 5.39 5.15 4.30-5.52 10^6/uL Hemoglobin 16.0 15.2 13.3-17.7 g/dL Hematocrit 49 47 40-54 % Mean Corpuscular Volume 91 91 80-99 fL Mean Corpuscular Hemoglobin 30 30 25-34 pg Mean Corpuscular Hemoglobin Concent 33 32 32-36 g/dL Red Cell Distribution Width 12.8 12.7 10.0-14.5 % Platelet Count 318 272 130-400 10^3/uL Mean Platelet Volume 9.5 9.9 9.0-12.2 fL Immature Granulocyte % (Auto) 2 0 % Neutrophils (%) (Auto) 56 66 42-75 % Lymphocytes (%) (Auto) 26 21 12-44 % Monocytes (%) (Auto) 13 H 10 0-12 % Eosinophils (%) (Auto) 2 2 0-10 % Basophils (%) (Auto) 1 0 0-10 % Neutrophils # (Auto) 5.7 6.0 1.8-7.8 10^3/uL Lymphocytes # (Auto) 2.6 1.9 1.0-4.0 10^3/uL Monocytes # (Auto) 1.3 H 1.0 0.0-1.0 10^3/uL Eosinophils # (Auto) 0.2 0.2 0.0-0.3 10^3/uL Basophils # (Auto) 0.1 0.0 0.0-0.1 10^3/uL Immature Granulocyte # (Auto) 0.2 H 0.0 0.0-0.1 10^3/uL Prothrombin Time 12.9 12.2-14.7 SEC INR Comment 0.9 0.8-1.4 Activated Partial Thromboplast Time 29 24-35 SEC Sodium Level 141 142 135-145 MMOL/L Potassium Level 3.9 4.2 3.6-5.0 MMOL/L Chloride Level 104 106 98-107 MMOL/L Carbon Dioxide Level 23 23 21-32 MMOL/L Anion Gap 14 13 5-14 MMOL/L Blood Urea Nitrogen 18 18 7-18 MG/DL Creatinine 0.91 0.81 0.60-1.30 MG/DL Estimat Glomerular Filtration Rate 88 100 BUN/Creatinine Ratio 20 22 Glucose Level 96 101 70-105 MG/DL Calcium Level 9.0 8.7 8.5-10.1 MG/DL Corrected Calcium 8.8 8.9 8.5-10.1 MG/DL Magnesium Level 1.9 1.6-2.4 MG/DL Total Bilirubin 0.8 1.0 0.1-1.0 MG/DL Aspartate Amino Transf (AST/SGOT) 22 23 5-34 U/L Alanine Aminotransferase (ALT/SGPT) 29 28 0-55 U/L Alkaline Phosphatase 66 52 40-136 U/L Myoglobin 43.8 10.0-92.0 NG/ML Troponin I < 0.028 < 0.028 <0.028 NG/ML B-Type Natriuretic Peptide 49.8 <100.0 PG/ML Total Protein 7.4 6.4 6.4-8.2 GM/DL Albumin 4.3 3.7 3.2-4.5 GM/DL Lipase 35 8-78 U/L Triglycerides Level 194 H <150 MG/DL Cholesterol Level 131 < 200 MG/DL LDL Cholesterol Direct 70 1-129 MG/DL VLDL Cholesterol 39 5-40 MG/DL HDL Cholesterol 32 L 40-60 MG/DL ECG Impression ECG Comment Sinus bradycardia at 53 bpm with possible old inferior myocardial infarction and early transition. Diagnosis/Problems Diagnosis/Problems (1) Chest pain Assessment & Plan: Exact etiology unclear. His chest discomfort sounds very atypical for angina. He had 2 negative troponin levels and his electrocardiogram does not show any ischemic changes. His symptoms sound more consistent with musculoskeletal chest pain. In light of these findings, it would not be unreasonable to discharge the patient to home. I told him if he has any pro longed chest discomfort, he should return to the emergency room. I will have our office contact the patient on Wednesday to schedule a follow-up appointment with Dr. Kohli within 1 week. (2) Primary hypertension Assessment & Plan: As above, his metoprolol was recently increased to metoprolol succinate 100 mg daily. He is also on losartan 100 mg daily. He should be discharged with this combination of medications. (3) Mixed hyperlipidemia Assessment & Plan: His LDL level is under good control as noted on blood work during this admission. He should continue simvastatin. (4) Obesity Assessment & Plan: He needs to work on weight loss. DIA ORTIZ JR, MD Apr 19, 2021 13:52
[2021-04-19] MEDS ORDERED: SIMV40TA25 PO (14:51)
[2021-04-19] MEDS ORDERED: MTP100TCR PO (14:51)
[2021-04-19] MEDS ORDERED: LOSA100T3 PO (14:51)
== END 2021-04-19 14:10 | disposition home or self-care (01) ==
LOC: EDUNIT# 16:15 → ER 16:18 → UNDOADMOB 17:56 → 4TH 17:56 → UNDODISOB 04-19 15:30
PROVIDERS: ADMIT Internal Medicine; ATTEND Internal Medicine
DX: I25.110 Atherosclerotic heart disease of native coronary artery with unstable angina pectoris (principal); Z95.5 Presence of coronary angioplasty implant and graft; E78.00 Pure hypercholesterolemia, unspecified; I10 Essential (primary) hypertension; Z79.82 Long term (current) use of aspirin; Z79.899 Other long term (current) drug therapy; Z79.02 Long term (current) use of antithrombotics/antiplatelets; I25.2 Old myocardial infarction; E78.2 Mixed hyperlipidemia; E66.9 Obesity, unspecified; Z68.29 Body mass index [BMI] 29.0-29.9, adult
CPT/HCPCS: 36415; 71045; 80053; 80061; 83690; 83735; 83874; 83880; 84484; 85025; 85610; 85730; 93005; 93041; G0378

== ENCOUNTER → 2021-07-08 | Outpatient (CLI) | payer OTHER ==
[~2021-07-08] VITALS: Ht 175 cm; Wt 95.0 kg
[~2021-07-08] MED LIST changes: +CATHETER FLUSH 10 ML SYR IV PRN; +LOSA100T3 PO; +MTP100TCR PO; +REGADENOSON 0.4 MG/5 ML SYR (LEXISCAN) IV ONE; +SIMV40TA25 PO
[2021-07-08 09:04] VITALS: BP 148/88
--- NOTE | 2021-07-08 17:32 | STRESS TEST ---
DATE OF SERVICE: 07/08/2021 RESTING AND POST REGADENOSON TECHNETIUM-99M TETROFOSMIN SPECT CT IMAGING ORDERING PHYSICIAN: Anastacia Ibarra APRN. PRIMARY PHYSICIAN: [facility]. OTHER PHYSICIAN: SURYA Haro. CLINICAL DIAGNOSES: Chest discomfort and coronary artery disease. Baseline images were carried out after injection of 10.59 mCi of technetium-99m Tetrofosmin. This was followed by 0.4 mg of Regadenoson and 29.1 mCi of technetium-99m Tetrofosmin for stress imaging. The electrocardiogram showed sinus rhythm with nonspecific T-wave abnormality. This did not change significantly with Regadenoson infusion. He noted some chest discomfort following Regadenoson infusion, which resolved in a few minutes. Review of images at rest and following stress indicates a small fixed basal inferolateral perfusion defect. Gated images show a well preserved global left ventricular systolic function with localized basal inferior hypokinesis. Left ventricular ejection fraction is calculated to be 70%. Left ventricular end-diastolic volume is 76 mL. TID is absent (1.03). CONCLUSIONS: This study is indicative of a small basal inferolateral myocardial infarction with a small area of hypokinesis and with left ventricular ejection fraction of 70%. Job ID: [id number] DocumentID: [id number] Dictated Date: 07/08/2021 15:22:28 City Auditor Date: 07/08/2021 17:32:00 Dictated By: ROSEANN OTERO MD, MA, FACP, FACC,
== END ==
LOC: CARD 07:45
PROVIDERS: ATTEND Nurse Practitioner Family
DX: I25.10 Atherosclerotic heart disease of native coronary artery without angina pectoris (principal)
CPT/HCPCS: 78452; 93017; A9502

== ENCOUNTER 2021-07-25 09:00 | Day surgery (SDC) | payer OTHER ==
[2021-07-25] VITALS (10 sets, daily range): BP systolic 121–156; BP diastolic 77–96
[~2021-07-25] VITALS: Ht 175.2 cm; Wt 94.8 kg
[2021-07-25 07:24] LABS: HEMATOCRIT 50 % (40-54); HEMOGLOBIN 16.5 g/dL (13.3-17.7); MEAN CORPUSCULAR HEMOGLOBIN 30 pg (25-34); MEAN CORPUSCULAR HGB CONC 33 g/dL (32-36); MEAN CORPUSCULAR VOLUME 92 fL (80-99); MEAN PLATELET VOLUME 9.3 fL (9.0-12.2); PLATELET COUNT 268 10^3/uL (130-400); WHITE BLOOD COUNT 8.1 10^3/uL (4.3-11.0)
[2021-07-25 07:35] LABS: INR 0.9 (0.8-1.4); PROTHROMBIN TIME PATIENT 12.2 SEC (12.2-14.7)
[2021-07-25 07:44] LABS: ALBUMIN 4.3 GM/DL (3.2-4.5); BILIRUBIN,TOTAL 1.4 MG/DL (0.1-1.0); CALCIUM 9.3 MG/DL (8.5-10.1); CREATININE SERUM 1.03 MG/DL (0.60-1.30); POTASSIUM 3.8 MMOL/L (3.6-5.0); TOTAL PROTEIN 7.6 GM/DL (6.4-8.2)
--- NOTE | 2021-07-25 08:55 | Cardiac Procedure Note-CS/ASA ---
Pre-Procedure Note Pre-Op Procedure Note H&P Reviewed The H&P was reviewed, patient examined and no changes noted. Date H&P Reviewed: Jul 25, 2021 Time H&P Reviewed: 08:30 Conscious Sedation Pre-Proced Time 08:30 ASA Score 3 For ASA 3 and 4: Consider anesthesia and medical clearance. Also, for patients with a history of failed moderate sedation consider anesthesia. Airway Lungs Heart ASA score ASA 1: a normal healthy patient ASA 2: a patient with a mild systemic disease (mid diabetes, controlled hypertension, obesity ASA 3: a patient with a severe systemic disease that limits activity (angina, COPD, prior Myocardial infarction) ASA 4: a patient with an incapacitating disease that is a constant threat to life (CHF, renal failure) ASA 5: a moribund patient not expected to survive 24 hrs. (ruptured aneurysm) ASA 6: a declared brain- patient whose organs are being harvested. For emergent operations, add the letter E after the classification Mallampati Classification Grade 2 Sedation Plan Analgesia, Amnesia, Plan communicated to team members, Discussed options with patient/fam, Discussed risks with patient/fam The patient is an appropriate candidate to undergo the planned procedure, sedation, and anesthesia. The patient immediately re-assessed prior to indication. ROSEANN OTERO MD FACP FAC CCDS Jul 25, 2021 08:55
[~2021-07-25 09:00] MED LIST changes: +ASCO-262 PO; +ASPI-1238 PO; -CATHETER FLUSH 10 ML SYR IV PRN; +CLOP75TA69 PO; +FISH1CAP15 PO; +HEParin (CATH LAB) 2,000 ML IV ONE; +HYDR25TA4 PO; +LIDOCAINE 1% INJ 50 ML (XYLOCAINE) VIAL ONE; +MIDAZOLAM 5 MG/5 ML (VERSED) VIAL ONE; +NS IV 1000 ML 1,000 ML IV SCH; +NS IV 1000 ML 1,000 ML ONE; -REGADENOSON 0.4 MG/5 ML SYR (LEXISCAN) IV ONE; +SIMV80TA21 PO; +fentaNYL INJ 100 MCG/2 ML AMP ONE
--- NOTE | 2021-07-25 10:04 | Discharge Inst-Cardiology ---
Discharge Inst-Cardiac Discharge Medications Continued Medications: Ascorbate Calcium (Vitamin C) 500 Mg Tablet 500 MG PO DAILY, TAB Aspirin (Aspirin EC) 81 Mg Tablet.dr 81 MG PO DAILY, TAB Clopidogrel Bisulfate (Plavix) 75 Mg Tablet 75 MG PO DAILY, TAB Fish Oil/Dha/Epa (Fish Oil 1,200 mg Fish Oil) 1 Each Capsule 1200 MG PO DAILY, CAP Hydrochlorothiazide (Hydrochlorothiazide) 25 Mg Tablet 25 MG PO DAILY, TAB Losartan Potassium (Cozaar) 100 Mg Tablet 100 MG PO DAILY, TAB Metoprolol Succinate (Metoprolol Succinate) 100 Mg Tab.er.24h 100 MG PO DAILY, TAB Multivitamin (Multi Vitamin Daily) 1 Each Tablet 1 EACH PO DAILY, TAB Simvastatin (Simvastatin) 80 Mg Tablet 80 MG PO DAILY, TAB ROSEANN OTERO MD [facility]S Jul 25, 2021 10:04
--- NOTE | 2021-07-25 10:04 | Discharge Inst-Post CATH ---
Discharge Inst-CATH/EP Post Cardiac Cath/EP D/C Inst Follow Up/Plan F/u with Dr Kohli in 2 - 3 weeks ACTIVITY * Go Home directly and rest. * Limit activity of the leg (or wrist if it was used) for 7 days including aerobics, swimming, jogging, bicycling, etc. * Restrict stair-climbing for 7 days if possible, if not, climb up with your non-cath leg, then bring together on the same step. * Avoid lifting, pushing, pulling or excessive movement of the affected extremity for 7 days. * Customary sexual activity may be resumed after 2 days-use caution not to use a position that strains or causes pain to the affected extremity. * No driving for 24 hours. * NO SMOKING. * Avoid straining for bowel movements for 7 days. * Gentle walking on level ground is allowed. * Returning to work will depend on the type of procedure and the results. Your doctor will discuss this with you. CALL YOUR DOCTOR FOR ANY OF THE FOLLOWING: *If bleeding from the puncture site occurs- Apply gentle pressure to site with clean cloth and call your doctor or EMS. * If a knot or lump forms under the skin, increases in size, or causes pain. * If bruising appears to be worsening or moving further down your leg instead of disappearing. * Temperature above 101 F. CARE OF YOUR GROIN INCISION; * Bruising or purple discoloration of the skin near the puncture site is common. * You may shower only, no bathtub bathing for 5 days. Be careful to avoid slipping as your leg may feel stiff. * If a closure device was used on your femoral artery, please see the attached guide regarding care of the device and your leg. * Leave dressing on FOR 24 hours. CARE OF YOUR WRIST INCISION; * Bruising or purple discoloration of the skin near the puncture site is common. * You may shower. * DO NOT submerge wrist. * Leave dressing on FOR 24 hours. ROSEANN KOHLI MD [facility] CCDS Jul 25, 2021 10:04
[2021-07-25] MEDS ORDERED: NS IV 1000 ML 1,000 ML IV SCH (10:15)
[2021-07-25] MEDS ORDERED: PATIENT MAY USE OWN MEDS, ALL PO SCH (10:15)
--- NOTE | 2021-07-25 10:35 | CARDIAC CATHETERIZATION ---
DATE OF SERVICE: 07/25/2021 CARDIAC CATHETERIZATION REPORT INDICATION FOR PROCEDURE: The patient is a 51-year-old gentleman, who had an acute inferior wall ST elevation myocardial infarction on 06/15/2020 that was treated with successful stenting of a dominant right coronary with Xience Emily 4.0 x 18 mm stent. Lately, he has had chest discomfort. Myocardial perfusion imaging indicated basal inferolateral myocardial infarction. He has continued to have chest discomfort. Cardiac catheterization was carried out today after having obtained an informed consent. DESCRIPTION OF PROCEDURE: He was brought to the cardiac catheterization laboratory in a fasting state. The right groin was prepared and draped in the usual sterile fashion. Lidocaine 1% was used for local anesthesia. Modified Seldinger technique was used to advance a 5[place] sheath into the right femoral artery. A [place] JL4 catheter was used for left coronary angiography, [place] JR4 catheter used for right coronary angiography, and [place] pigtail catheter was used for left heart catheterization and left ventricular angiography. Angiography of the right femoral artery was carried out through the sheath. Mynx was used to achieve hemostasis. He tolerated the procedure well. HEMODYNAMICS: Left ventricular end-diastolic pressure following coronary angiography was 14 mmHg. There was no significant pressure gradient on pullback across the aortic valve. Ascending aortic pressure was 118/78 with a mean 101 mmHg. CORONARY ANGIOGRAPHY: Left main coronary artery, left anterior descending artery, left circumflex artery do not exhibit significant disease. Right coronary artery is dominant. There is a widely patent stent in its proximal portion. The rest of the right coronary artery has mild plaques. LEFT VENTRICULAR ANGIOGRAPHY: Left ventricular angiography was carried out in the right anterior oblique projection. There is posterobasal akinesis. Left ventricular ejection fraction is 50% to 55%. CONCLUSIONS: 1. Mild coronary artery disease, patent proximal stent in a dominant right coronary (known to be Xience Emily 4.0 x 18 mm, placed on 06/15/2020). 2. Posterior basal akinesis. 3. Mild elevation of left ventricular end-diastolic pressure. DISCUSSION AND RECOMMENDATIONS: Based on the results of the study, it appears appropriate to continue a conservative regimen. The current regimen consists of beta vickie, angiotensin receptor vickie, and antiplatelet agents along with statins. This regimen is being continued. Outpatient followup is advised. Job ID: [id number] DocumentID: [id number] Dictated Date: 07/25/2021 08:54:46 Branch Operations Specialist Date: 07/25/2021 10:34:45 Dictated By: ROSEANN OTERO MD, MA, FACP, FACC,
== END 2021-07-25 12:15 | disposition home or self-care (01) ==
LOC: CATH 09:00 → SDC 09:08 → CATH 12:15
PROVIDERS: ATTEND Internal Medicine Cardiovascular Disease
DX: I25.10 Atherosclerotic heart disease of native coronary artery without angina pectoris (principal); I25.2 Old myocardial infarction; I10 Essential (primary) hypertension; E78.2 Mixed hyperlipidemia; R29.898 Other symptoms and signs involving the musculoskeletal system; R07.89 Other chest pain; Z79.02 Long term (current) use of antithrombotics/antiplatelets; Z79.82 Long term (current) use of aspirin
CPT/HCPCS: 80053; 80061; 85027; 85610; 85730; 87081; 93458; C1760; C1894; 36415

== ENCOUNTER → 2021-12-15 | Outpatient (CLI) | payer OTHER ==
[~2021-12-15] MED LIST changes: -HEParin (CATH LAB) 2,000 ML IV ONE; -LIDOCAINE 1% INJ 50 ML (XYLOCAINE) VIAL ONE; -MIDAZOLAM 5 MG/5 ML (VERSED) VIAL ONE; -NS IV 1000 ML 1,000 ML IV SCH; -NS IV 1000 ML 1,000 ML ONE; +RT-ALBUTEROL SULF 2.5 MG/3 ML PRE-MIX VIAL INH ONE; -fentaNYL INJ 100 MCG/2 ML AMP ONE
== END ==
LOC: RT 13:00
PROVIDERS: ATTEND Nurse Practitioner Family
DX: R05.9 Cough, unspecified (principal); R06.02 Shortness of breath
CPT/HCPCS: 94060; 94726; 94729

== ENCOUNTER → 2023-01-12 | Outpatient (CLI) | payer OTHER ==
[~2023-01-12] VITALS: Ht 175 cm; Wt 96.0 kg
[~2023-01-12] MED LIST changes: +CATHETER FLUSH 10 ML SYR IVP PRN; +CLOP-31 PO; -CLOP75TA69 PO; -LOSA100T3 PO; +LOSA100T4 PO; +REGADENOSON 0.4 MG/5 ML SYR (LEXISCAN) IV ONE; -RT-ALBUTEROL SULF 2.5 MG/3 ML PRE-MIX VIAL INH ONE
[2023-01-12 09:11] VITALS: BP 118/78
[2023-01-12 09:15] VITALS: BP 136/79
--- NOTE | 2023-01-12 19:34 | STRESS TEST ---
DATE OF SERVICE: 01/12/2023 RESTING AND POST REGADENOSON TECHNETIUM-99M TETROFOSMIN SPECT CT IMAGING ORDERING PHYSICIAN: Anastacia Ibarra APRN. PRIMARY PHYSICIAN: [facility]. CLINICAL DIAGNOSIS: Wide complex tachycardia. Baseline images were carried out after injection of 10.64 mCi of technetium-99m tetrofosmin. This was followed by 0.4 mg regadenoson and 31.8 mCi of technetium-99m tetrofosmin for stress imaging. The electrocardiogram showed sinus rhythm at baseline. It did not change significantly with regadenoson infusion. Review of images at rest and following stress does not indicate any distinct perfusion defects consistent with myocardial ischemia or infarction. Gated images show normal global left ventricular systolic function with normal regional wall motion. Left ventricular ejection fraction is calculated to be 57%. Left ventricular end-diastolic volume is 89 mL. TID is absent (1.01). CONCLUSIONS: 1. No evidence of any significant myocardial ischemia or infarction on this study. 2. Normal regional wall motion. 3. Normal global left ventricular systolic function with a calculated ejection fraction of 57%. Job ID: [id number] DocumentID: [id number] Dictated Date: 01/12/2023 16:57:41 Yeast Cake Cutter Date: 01/12/2023 19:32:00 Dictated By: ROSEANN OTERO MD; FIDELINA; FACP; FACC;
== END ==
LOC: CARD 07:34
PROVIDERS: ATTEND Nurse Practitioner Family
DX: I47.20 Ventricular tachycardia, unspecified (principal); I25.10 Atherosclerotic heart disease of native coronary artery without angina pectoris
CPT/HCPCS: 78452; 93017; A9502